=== PATIENT | female | born 1955 | race Caucasian/White ===

== ENCOUNTER → 2018-01-02 | Outpatient (CLI) | payer OTHER ==
[~2018-01-02] MED LIST: BUPR150T3 PO; CYCL-36 PO; ESTR1TAB PO; IBUP800 PO; LANS30CA PO; LANSO15 PO; ROSU1TAB8 PO; TRAM50TA PO
[2018-01-02 09:08] LABS: HEMATOCRIT 42.4 % (35.0-46.0); HEMOGLOBIN 14.4 GM/DL (11.6-15.3); MEAN CELL VOLUME 92.7 FL (80.0-100.0); MEAN CORPUSCULAR HEMOGLOBIN 31.5 PG (27.0-34.0); PLATELET COUNT 276 TH/MM3 (150-450); RED BLOOD COUNT 4.58 MIL/MM3 (4.00-5.30); RED CELL DISTRIBUTION WIDTH 13.2 % (11.6-17.2); WHITE BLOOD COUNT 8.4 TH/MM3 (4.0-11.0)
[2018-01-02 09:17] LABS: PROTHROMBIN TIME - PATIENT 10.4 SEC (9.8-11.6)
[2018-01-02 11:21] LABS: BICARBONATE 23.2 MEQ/L (21.0-32.0); CREATININE 0.71 MG/DL (0.50-1.00)
--- NOTE | 2018-01-02 12:27 | EKG ---
Date Performed: 01/02/2018 Time Performed: 08:31:39 PTAGE: 62 years EKG: Sinus rhythm POSSIBLE RIGHT VENTRICULAR CONDUCTION DELAY BORDERLINE ECG NO PREVIOUS TRACING DOCTOR: Emmanuel Galvan Interpretating Date/Time 01/02/2018 12:25:19
== END ==
LOC: CPRE 08:04
PROVIDERS: ATTEND Surgery
DX: Z01.810 Encounter for preprocedural cardiovascular examination (principal); Z01.812 Encounter for preprocedural laboratory examination; Z01.818 Encounter for other preprocedural examination; I65.23 Occlusion and stenosis of bilateral carotid arteries; R94.31 Abnormal electrocardiogram [ECG] [EKG]
CPT/HCPCS: 36415; 80048; 85027; 85610; 85730; 93005

== ENCOUNTER 2018-01-06 05:59 | Inpatient (IN) | payer OTHER ==
[~2018-01-06] VITALS: Ht 170.2 cm; Wt 74.0 kg
[~2018-01-06 05:59] MED LIST changes: -CYCL-36 PO; -ESTR1TAB PO; -IBUP800 PO; -LANSO15 PO; -TRAM50TA PO
[2018-01-06] MEDS ORDERED: CHLORHEXIDINE GLUCONATE 2 % 1 PACK (2 CLOTHS) TOPICAL PRN (06:30)
[2018-01-06] MEDS ORDERED: METOPROLOL TARTRATE 25 MG TAB PO PRN (06:30)
[2018-01-06] MEDS ORDERED: SODIUM CHLORID 0.9% 500 ML IV PRN (06:30)
[2018-01-06] MEDS ORDERED: POVIDONE IODINE 5% (ANTISEPSIS KIT) 4 APPLICATIONS EACH NARE PRN (06:30)
[2018-01-06] MEDS ORDERED: LACTATED RINGER'S 1000 ML IV PRN (06:30)
[2018-01-06] MEDS ORDERED: HEPARIN SODIUM - IV 10,000 UNITS/10 ML VIAL ONE (06:51)
[2018-01-06] MEDS ORDERED: ceFAZolin 2 GM PREMIX 50 ML ONE (06:51)
[2018-01-06] MEDS ORDERED: BUPIVACAINE/EPINEPHRINE 0.5% PF 30 ML VIAL ONE (06:51)
[2018-01-06] MEDS ORDERED: HEPARIN-NS/PF INJ 500 ML ONE (06:51)
[2018-01-06] MEDS ORDERED: THROMBIN (TOPICAL) 20,000 UNIT SPRAY KIT ONE (06:51)
[2018-01-06] MEDS ORDERED: PROTAMINE SULFATE 50 MG/5 ML VIAL ONE (06:51)
--- NOTE | 2018-01-06 06:57 | PD.VS.PN ---
Pre-operative Note Pre-operative diagnosis: Symptomatic L ICA stenosis, >80% Planned procedure: L CEA Interval History: Pt has been feeling well, no new neuro symptoms. No change in health that would preclude OR. Labs: Hct 42 plt 276 INR 1.0 creatinine 0.7 Blood: T&S EKG: no acute changes Imaging: duplex reviewed: >80% L ICA stenosis and <50% R ICA stenosis Orders: NPO Ancef 2g IV OCTOR Post-operative destination: CVICU Operative site marked: Yes Consent: Informed consent has been obtained from Yumiko Hilliard. I have explained the procedure in detail and discussed the risks, benefits, and potential complications. All questions have been answered. Patient contact information: [phone] Ethan Jenkins MD Jan 06, 2018 06:57
[2018-01-06] MEDS ORDERED: ASPI-516 CHEW (07:02)
[2018-01-06] MEDS ORDERED: APREPITANT 40 MG CAP ONE (07:21)
[2018-01-06] MEDS ORDERED: ACETAMINOPHEN 1000 MG/100 ML 100 ML IV ONE (07:22)
[2018-01-06] MEDS ORDERED: NITROGLYCERIN INJ 5 ML ONE (08:47)
--- NOTE | 2018-01-06 09:14 | HHI.PR ---
cc: John Barakat MD PhD; Ethan Jenkins MD Immediate Post Op Note Procedure Date: Jan 06, 2018 Pre Op Diagnosis: symptomatic high grade LEFT carotid stenosis Post Op Diagnosis: symptomatic high grade LEFT carotid stenosis Surgeon: Ethan Jenkins Base Remover(s): Ethan Hernández Procedure: L CEA Findings: high grade plaque at proximal ICA no neuro changes intraop Additional Information: awoke neuro intact Complications: none Specimen(s) removed: plaque, not for patholgoy Estimated blood loss: 100mL Anesthesia: General Drains: None Fluids: 1100mL IVF Urinary Output (mLs): 100 Patient to: CVICU Patient Condition: Good Implant/Devices: SEE IMPLANT LOG (if applicable) Date/Time of Procedure: SEE SURGICAL CARE RECORD Ethan Jenkins MD Jan 06, 2018 09:14
[2018-01-06] MEDS ORDERED: MORPHINE SULFATE 4 MG/ML INJ IV PUSH PRN (09:15)
[2018-01-06] MEDS ORDERED: BISACODYL 10 MG SUPP RECTAL PRN (09:15)
[2018-01-06] MEDS ORDERED: MAGNESIUM HYDROXIDE SUSP 30 ML CUP PO PRN (09:15)
[2018-01-06] MEDS ORDERED: SENNOSIDES 8.6 MG TAB PO PRN (09:15)
[2018-01-06] MEDS ORDERED: LACTULOSE SYRUP 20 GM/30 ML CUP PO PRN (09:15)
[2018-01-06 09:19] VITALS: BP_SYST 157; BP_SYST 209; BP_DIAS 72; BP_DIAS 99; PULSE 90; RESP 18; TEMP 97.5; O2SAT 99
[2018-01-06] MEDS ORDERED: MIDAZOLAM HCL 2 MG/2 ML VIAL ONE (09:34)
[2018-01-06 11:00] VITALS: BP_SYST 144; BP_SYST 146; BP_DIAS 60; BP_DIAS 73; PULSE 64; PULSE 65; RESP 16; TEMP 97.7; O2SAT 99
[2018-01-06] MEDS ORDERED: hydrALAZINE HCL 20 MG/ML VIAL IV PUSH PRN (11:15)
[2018-01-06] MEDS ORDERED: RESP: ALBUTEROL 2.5 MG/IPRATROPIUM 0.5 MG NEB (PRN) NEB (11:15)
--- NOTE | 2018-01-06 11:43 | MB ---
cc: Eboni Cavazos MD DATE: 01/06/2018 HISTORY OF PRESENT ILLNESS: The patient is a 62-year-old female with past medical history of hyperlipidemia, who had a carotid duplex ultrasound which showed greater than 80% and a left ICA stenosis and less than 50% right ICA stenosis. She underwent left carotid endarterectomy today by Dr. Jenkins. She received 1100 mL of crystalloids and had 100 mL of urine output along with 100 mL of estimated blood loss. The patient was transferred to CV ICU for close observation and Critical Care Medicine was consulted for critical care management. When seen, the patient is awake, alert, complaining of headache. She is lying in bed in no acute distress. Her current blood pressure is 159/69 on the art line with a saturation of 99% on 2 liters. She denies any chest pain, shortness of breath or GI symptoms. PAST MEDICAL HISTORY: Significant for hyperlipidemia. The patient denies any history of hypertension, diabetes mellitus or coronary artery disease. PAST SURGICAL HISTORY: Previous hysterectomy and knee surgery. ALLERGIES: DEMEROL, OXYCODONE and HYDROCODONE. SOCIAL HISTORY: Remote history of smoking. Nondrinker. FAMILY HISTORY: Noncontributing to present illness. REVIEW OF SYSTEMS: As per HPI, rest of the review of systems is unremarkable. PHYSICAL EXAMINATION: GENERAL: A 62-year-old female lying in bed, in no acute distress. VITAL SIGNS: Afebrile, pulse of 65, blood pressure 159/69 on art line, saturation 99% on 2 liters oxygen. HEENT: Atraumatic, normocephalic. Pupils are equal, round, reactive to light and accommodation. Extraocular muscles intact. Conjunctivae pink. Nonicteric sclerae. Oral mucosa within normal. NECK: Supple. No JVD, adenopathy or thyromegaly. Trachea in the midline. CARDIOVASCULAR: Regular rate and rhythm. Normal S1, S2. No murmurs, rubs or gallops noted. PULMONARY: Bilateral equal air entry. No rales or wheezing. ABDOMEN: Soft, nontender. No distention. Positive bowel sounds. EXTREMITIES: No cyanosis, clubbing, edema. NEUROLOGIC: No focal sensory deficit. LABORATORY DATA: From 01/02/2018 showed a sodium of 141, potassium 3.8, chloride 108, CO2 23, BUN 15, creatinine 0.71, glucose of 84. WBC 8.4, hemoglobin 14.4, hematocrit 42, platelet count 376. IMPRESSION: 1. Left carotid stenosis, status post left carotid endarterectomy. 2. Hypertension. 3. History of hyperlipidemia. 4. History of depression. RECOMMENDATIONS: 1. Monitor neuro status closely and minimize sedation. 2. Continue the oxygen to maintain sats above 92%. 3. We will place her on bronchodilators on a p.r.n. basis. 4. Monitor heart rate and blood pressure closely and maintain MAP greater than [address] on hydralazine 50 mg p.o. q. 8 hours for blood pressure control. Continue with aspirin 325 mg daily, Lipitor 40 mg at bedtime. 5. Monitor renal function, I's and O's and electrolyte replacement per protocol. 6. The patient was started on a p.o. heart healthy diet. 7. Placed on Pepcid for GI prophylaxis. Of note, the patient is on Prevacid 30 mg b.i.d. at home. 8. Monitor for signs of infection, which include fever and WBC. Butcher culture if spikes a fever. 9. Sliding scale insulin if needed for glycemic control. 10. Gastrointestinal prophylaxis with Pepcid 20 mg b.i.d. and deep venous thrombosis prophylaxis with sequential compression devices and Lovenox 40 mg subcutaneous daily as ordered. MD DAQUAN Argueta/AVINASH , 11:17 AM , 11:42 AM
[2018-01-06] MEDS ORDERED: LABETALOL HCL 100 MG/20 ML VIAL IV ONE (12:00)
[2018-01-06] MEDS ORDERED: ROCURONIUM INJ 50 MG/5 ML SYRINGE IV PUSH ONE (12:00)
[2018-01-06] MEDS ORDERED: NEOSTIGMINE 5 MG/5 ML SYRINGE IV PUSH ONE (12:00)
[2018-01-06] MEDS ORDERED: PROPOFOL 200 MG/20 ML AMP IV ONE (12:00)
[2018-01-06] MEDS ORDERED: ONDANSETRON HCL 4 MG/2 ML VIAL IV PUSH ONE (12:00)
[2018-01-06] MEDS ORDERED: DEXAMETHASONE SOD PHOS 4 MG/ML VIAL IV ONE (12:00)
[2018-01-06] MEDS ORDERED: LIDOCAINE HCL 1% PF 5 ML SYRINGE OTHER ONE (12:00)
[2018-01-06] MEDS ORDERED: ePHEDrine/NS 25 MG/5 ML SYRINGE IV ONE (12:00)
[2018-01-06] MEDS ORDERED: SODIUM CHLORIDE 0.9% 10 ML VIAL IV FLUSH ONE (12:00)
[2018-01-06] MEDS ORDERED: GLYCOPYRROLATE 1 MG/5 ML SYRINGE IV PUSH ONE (12:00)
[2018-01-06] MEDS ORDERED: PHENYLEPHRINE HCL 10 MG/ML VIAL IV ONE (12:00)
[2018-01-06] MEDS: ACETAMINOPHEN 1000 MG/100 ML 100 ML IV PRN (12:15)
[2018-01-06] MEDS: ONDANSETRON HCL 4 MG/2 ML VIAL IV PUSH PRN ×2 (12:15→19:08)
[2018-01-06 12:21] LABS: AUTOMATED NEUTROPHIL # 7.1 TH/MM3 (1.8-7.7); BASOPHIL % 0.2 % (0.0-2.0); EOSINOPHIL % 0.4 % (0.0-4.0); HEMATOCRIT 33.8 % (35.0-46.0); LYMPH % 8.8 % (9.0-44.0); LYMPHOCYTE # 0.7 TH/MM3 (1.0-4.8); MEAN CELL VOLUME 90.7 FL (80.0-100.0); MEAN CORPUSCULAR HEMOGLOBIN 32.2 PG (27.0-34.0); MEAN CORPUSCULAR HGB CONC 35.5 % (32.0-36.0); MEAN PLATELET VOLUME 7.9 FL (7.0-11.0); MONO % 2.6 % (0.0-8.0); MONOCYTE # 0.2 TH/MM3 (0-0.9); PLATELET COUNT 214 TH/MM3 (150-450); RED BLOOD COUNT 3.72 MIL/MM3 (4.00-5.30); WHITE BLOOD COUNT 8.1 TH/MM3 (4.0-11.0)
[2018-01-06 12:38] LABS: BICARBONATE 23.9 MEQ/L (21.0-32.0); CREATININE 0.47 MG/DL (0.50-1.00); PHOSPHORUS 3.4 MG/DL (2.5-4.9)
[2018-01-06] MEDS: hydrALAZINE HCL 50 MG TAB PO SCH ×2 (13:09→22:09)
[2018-01-06] MEDS: HYDROmorphone HCL 2 MG TAB PO PRN ×2 (13:49→17:42)
[2018-01-06 15:00] VITALS: BP_SYST 123; BP_SYST 129; BP_DIAS 47; BP_DIAS 57; PULSE 69; PULSE 71; RESP 16; TEMP 97.7; O2SAT 99
--- NOTE | 2018-01-06 15:18 | MP ---
cc: Ethan Jenkins MD DATE OF OPERATION: PREOPERATIVE DIAGNOSIS: Symptomatic left carotid stenosis. POSTOPERATIVE DIAGNOSIS: Symptomatic left carotid stenosis. PROCEDURE PERFORMED: Left carotid endarterectomy. ATTENDING SURGEON: Ethan Jenkins MD PARIMUTUEL TICKET CASHIER SURGEON: Ethan Hernández. ANESTHESIA: General. INDICATIONS: Ms. Hilliard is a 62-year-old lady with symptomatic carotid stenosis greater than 80% by duplex. She was taken to the operating room for carotid endarterectomy. DESCRIPTION OF PROCEDURE: Informed consent was obtained from the patient. She was taken to the operating room and placed supine on the operating table. An appropriate timeout was taken to ensure the patient's identity, operative site and planned procedure. The administration of 2 grams of Ancef was initiated prior to skin incision and will be discontinued after a single preoperative dose. Everyone in the room agreed with timeout and we proceeded. The left neck was prepped and draped. Incision made along the anterior border of sternocleidomastoid and carried down to subcutaneous tissue with electrocautery. The facial vein was identified and ligated between 3-0 silk. The jugular vein was gently retracted. The common carotid artery was identified and encircled with vessel loop. The internal carotid artery, external carotid artery and superior thyroid artery were all dissected free. The patient was systemically heparinized and ACT was confirmed greater than 250. Distal and proximal control of the internal and common carotid artery were obtained with profunda clamps and the external carotid artery was controlled with a profunda clamp. A longitudinal arteriotomy was made extending from the common carotid artery up to the internal carotid artery and the entire area was endarterectomized without difficulty. Nice endpoint was obtained and the endarterectomized artery was copiously irrigated. The arteriotomy was closed with a patch using running 5-0 Prolene suture. At the completion, it was flushed and noted to be hemostatic. There was a nice Doppler signal in distal ICA and the ECA. The heparin was reversed with protamine. The wound was irrigated, infiltrated with Marcaine and closed with 2-0 Polysorb, 3-0 Polysorb and 4-0 Monocryl. The sponge and needle counts were correct at the end of the case. Throughout the entire case, there were no neurological EEG changes. Ethan Jenkins MD RJF/TL , 02:22 PM , 03:18 PM
[2018-01-06 19:00] VITALS: BP_SYST 123; BP_SYST 139; BP_DIAS 53; BP_DIAS 75; PULSE 65; PULSE 69; RESP 16; TEMP 97.7; O2SAT 99
[2018-01-06] MEDS ORDERED: ATORVASTATIN 40 MG TAB PO SCH (21:00)
[2018-01-06 21:20] VITALS: O2SAT 97
[2018-01-06] MEDS ORDERED: ONDANSETRON ODT 4 MG TAB PO PRN (21:30)
[2018-01-06] MEDS ORDERED: PROMETHAZINE HCL 25 MG TAB PO ONE (21:30)
[2018-01-06] MEDS: FAMOTIDINE 20 MG TAB PO SCH (22:08)
[2018-01-06] MEDS: DOCUSATE SODIUM 50 MG/SENNA 8.6 MG TAB PO SCH (22:09)
[2018-01-06] MEDS: buPROPion HCL 150 MG SUSTAINED RELEASE TAB PO SCH (22:09)
[2018-01-06 23:00] VITALS: BP_SYST 120; BP_SYST 130; BP_DIAS 51; BP_DIAS 65; PULSE 55; PULSE 58; RESP 14; TEMP 98.2; O2SAT 99
[2018-01-07 03:00] VITALS: BP_SYST 113; BP_SYST 129; BP_DIAS 48; BP_DIAS 60; PULSE 56; RESP 14; TEMP 98.5; O2SAT 100
[2018-01-07] MEDS: hydrALAZINE HCL 50 MG TAB PO SCH ×2 (05:00→12:09)
[2018-01-07 07:00] VITALS: BP_SYST 124; BP_SYST 127; BP_DIAS 51; BP_DIAS 66; PULSE 60; PULSE 63; RESP 16; TEMP 97.8; O2SAT 98
[2018-01-07] MEDS: ACETAMINOPHEN 1000 MG/100 ML 100 ML IV PRN (07:02)
--- NOTE | 2018-01-07 07:16 | PD.VS.PN ---
Subjective POD #: 1 Procedure(s): L CEA Subjective/Hospital Course moderate headache but no neuro symptoms VALADEZ sitting in chair Objective Vitals/I&O Date Time Temp Pulse Resp B/P (MAP) Pulse Ox O2 Delivery O2 Flow Rate FiO2 01/07/18 03:00 98.5 56 14 129/60 (83) 100 113/48 (69) 01/07/18 03:00 100 Nasal Cannula 1.00 01/07/18 03:00 56 01/06/18 23:00 99 Nasal Cannula 1.00 01/06/18 23:00 98.2 55 14 130/65 (86) 99 120/51 (74) 01/06/18 23:00 58 01/06/18 21:20 97 Nasal Cannula 2.00 01/06/18 19:04 17 01/06/18 19:00 65 01/06/18 19:00 97.7 69 16 139/75 (96) 99 123/53 (76) 01/06/18 19:00 98 Nasal Cannula 1.00 01/06/18 15:00 99 Nasal Cannula 1.00 01/06/18 15:00 71 01/06/18 15:00 97.7 69 16 129/57 (81) 99 123/47 (72) 01/06/18 12:57 16 01/06/18 11:00 97.7 65 16 144/73 (96) 99 146/60 (88) 01/06/18 11:00 99 Nasal Cannula 2.00 01/06/18 11:00 64 01/06/18 09:19 97.5 90 18 209/72 (117) 99 157/99 (118) 01/06/18 09:19 99 Nasal Cannula 2.00 01/06/18 09:19 90 01/07/18 01/07/18 01/07/18 07:00 15:00 23:00 Intake Total 560 ml Output Total 700 ml Balance -140 ml Exam: alert, VALADEZ L neck incision looks good, no swelling 5/5 UE/LE strength Laboratory Laboratory Tests Test 01/06/18 11:47 01/07/18 05:51 White Blood Count 8.1 Red Blood Count 3.72 Hemoglobin 12.0 Hematocrit 33.8 Mean Corpuscular Volume 90.7 Mean Corpuscular Hemoglobin 32.2 Mean Corpuscular Hemoglobin Concent 35.5 Red Cell Distribution Width 13.0 Platelet Count 214 Mean Platelet Volume 7.9 Neutrophils (%) (Auto) 88.0 Lymphocytes (%) (Auto) 8.8 Monocytes (%) (Auto) 2.6 Eosinophils (%) (Auto) 0.4 Basophils (%) (Auto) 0.2 Neutrophils # (Auto) 7.1 Lymphocytes # (Auto) 0.7 Monocytes # (Auto) 0.2 Eosinophils # (Auto) 0.0 Basophils # (Auto) 0.0 CBC Comment DIFF FINAL Differential Comment Blood Urea Nitrogen 9 Creatinine 0.47 Random Glucose 121 Calcium Level 8.0 Phosphorus Level 3.4 Magnesium Level 2.0 Sodium Level 140 Potassium Level 3.6 Chloride Level 107 Carbon Dioxide Level 23.9 Anion Gap 9 Estimat Glomerular Filtration Rate 135 Assessment and Plan Plan POD#1 s/p L CEA Neuro intact and looks great. 1. D/C today 2. F/U AML (pending) 3. Continue ASA/statin Discharge Planning today Ethan Jenkins MD Jan 07, 2018 07:16
[2018-01-07 07:27] LABS: BASOPHIL % 0.2 % (0.0-2.0); EOSINOPHIL % 0.2 % (0.0-4.0); HEMATOCRIT 38.3 % (35.0-46.0); HEMOGLOBIN 13.3 GM/DL (11.6-15.3); LYMPH % 15.8 % (9.0-44.0); LYMPHOCYTE # 1.5 TH/MM3 (1.0-4.8); MEAN CORPUSCULAR HEMOGLOBIN 32.2 PG (27.0-34.0); MEAN CORPUSCULAR HGB CONC 34.6 % (32.0-36.0); MEAN PLATELET VOLUME 8.3 FL (7.0-11.0); MONO % 8.9 % (0.0-8.0); MONOCYTE # 0.8 TH/MM3 (0-0.9); NEUT % 74.9 % (16.0-70.0); PLATELET COUNT 256 TH/MM3 (150-450); RED BLOOD COUNT 4.12 MIL/MM3 (4.00-5.30); RED CELL DISTRIBUTION WIDTH 13.4 % (11.6-17.2); WHITE BLOOD COUNT 9.3 TH/MM3 (4.0-11.0)
[2018-01-07 07:38] LABS: BICARBONATE 23.7 MEQ/L (21.0-32.0); CALCIUM 8.9 MG/DL (8.5-10.1); CREATININE 0.5 MG/DL (0.50-1.00); MAGNESIUM 2.4 MG/DL (1.5-2.5); PHOSPHORUS 3.6 MG/DL (2.5-4.9)
[2018-01-07] MEDS ORDERED: ENOXAPARIN SODIUM 40 MG/0.4 ML SYRINGE SQ SCH (08:00)
[2018-01-07] MEDS ORDERED: DILA2TAB4 PO (08:40)
[2018-01-07] MEDS ORDERED: ASPIRIN 325 MG TAB PO SCH (09:00)
--- NOTE | 2018-01-07 09:00 | PD.VS.DC ---
Discharge Summary Admission Date: Jan 06, 2018 at 05:59 Discharge Date: Jan 07, 2018 Admission Diagnosis: (1) Carotid artery disease Discharge Diagnosis: (1) S/P carotid endarterectomy ICD Codes: Z98.890 - Other specified postprocedural states (2) Carotid artery disease ICD Codes: I77.9 - Disorder of arteries and arterioles, unspecified Brief History from admission 62/F with a hx of symptomatic L ICA stenosis, >80% Procedure(s): L CEA Significant Findings GENERAL: A&OX3,GCS 15 SKIN: Warm and dry/ L Neck incision intact w/o R/D/S HEAD: Normocephalic. EYES: No scleral icterus. No injection or drainage. NECK: Supple, trachea midline. No JVD or lymphadenopathy. CARDIOVASCULAR: Regular rate and rhythm without murmurs, gallops, or rubs. RESPIRATORY: Breath sounds equal bilaterally. No accessory muscle use. CN 2-12 intact Pt w/o any neurological deficits Speech clear UE 5/5 LE 5/5 Laboratory Tests Test 01/06/18 11:47 01/07/18 05:51 Red Blood Count 3.72 MIL/MM3 (4.00-5.30) Hematocrit 33.8 % (35.0-46.0) Neutrophils (%) (Auto) 88.0 % (16.0-70.0) 74.9 % (16.0-70.0) Lymphocytes (%) (Auto) 8.8 % (9.0-44.0) Lymphocytes # (Auto) 0.7 TH/MM3 (1.0-4.8) Creatinine 0.47 MG/DL (0.50-1.00) Random Glucose 121 MG/DL (74-106) Calcium Level 8.0 MG/DL (8.5-10.1) Monocytes (%) (Auto) 8.9 % (0.0-8.0) Chloride Level 108 MEQ/L (98-107) Hospital Course: 62/F with a hx of symptomatic L ICA stenosis, >80% Pt s/p L CEA POD 1 Doing well w/o any neurological deficits moderate headache but no neuro symptoms VALADEZ sitting in chair Headache improved w/ Acetaminophen Pt clear for D/C F/U arranged 4W w/ a carotid duplex Reviewed E- Forcse- No recent activity- RX post operative pain medication for 3 days Allergies Coded Allergies Type Severity Reaction Last Updated Verified hydrocodone Allergy Severe Rash 01/06/18 Yes meperidine Allergy Severe Shortness of Breath 01/06/18 Yes oxycodone Allergy Severe Rash 01/06/18 Yes 01/05/18 01/05/18 01/06/18 01/06/18 01/07/18 01/07/18 06:00 18:00 06:00 18:00 06:00 18:00 Intake Total 2200 ml 560 ml Output Total 850 ml 700 ml Balance 1350 ml -140 ml Intake Oral 100 ml 560 ml IV Total 1000 ml Other 1100 ml Output Urine Total 750 ml 700 ml Stool Total 0 ml Estimated Blood Loss 100 ml # Voids 2 # Bowel Movements 0 Laboratory Tests Test 01/06/18 11:47 01/07/18 05:51 White Blood Count 8.1 TH/MM3 9.3 TH/MM3 Red Blood Count 3.72 MIL/MM3 4.12 MIL/MM3 Hemoglobin 12.0 GM/DL 13.3 GM/DL Hematocrit 33.8 % 38.3 % Mean Corpuscular Volume 90.7 FL 93.0 FL Mean Corpuscular Hemoglobin 32.2 PG 32.2 PG Mean Corpuscular Hemoglobin Concent 35.5 % 34.6 % Red Cell Distribution Width 13.0 % 13.4 % Platelet Count 214 TH/MM3 256 TH/MM3 Mean Platelet Volume 7.9 FL 8.3 FL Neutrophils (%) (Auto) 88.0 % 74.9 % Lymphocytes (%) (Auto) 8.8 % 15.8 % Monocytes (%) (Auto) 2.6 % 8.9 % Eosinophils (%) (Auto) 0.4 % 0.2 % Basophils (%) (Auto) 0.2 % 0.2 % Neutrophils # (Auto) 7.1 TH/MM3 7.0 TH/MM3 Lymphocytes # (Auto) 0.7 TH/MM3 1.5 TH/MM3 Monocytes # (Auto) 0.2 TH/MM3 0.8 TH/MM3 Eosinophils # (Auto) 0.0 TH/MM3 0.0 TH/MM3 Basophils # (Auto) 0.0 TH/MM3 0.0 TH/MM3 CBC Comment DIFF FINAL AUTO DIFF Differential Comment AUTO DIFF CONFIRMED Blood Urea Nitrogen 9 MG/DL 7 MG/DL Creatinine 0.47 MG/DL 0.50 MG/DL Random Glucose 121 MG/DL 86 MG/DL Calcium Level 8.0 MG/DL 8.9 MG/DL Phosphorus Level 3.4 MG/DL 3.6 MG/DL Magnesium Level 2.0 MG/DL 2.4 MG/DL Sodium Level 140 MEQ/L 141 MEQ/L Potassium Level 3.6 MEQ/L 3.9 MEQ/L Chloride Level 107 MEQ/L 108 MEQ/L Carbon Dioxide Level 23.9 MEQ/L 23.7 MEQ/L Anion Gap 9 MEQ/L 9 MEQ/L Estimat Glomerular Filtration Rate 135 ML/MIN 125 ML/MIN Orders Procedure Category Date Status Time Lactated Ringer's MED 01/06/18 In Process 1000 Ml Inj (Lr 1000 M 06:30 Sodium Chlorid 0.9% MED 01/06/18 In Process 500 Ml Inj (Ns 500 M 06:30 Metoprolol Tartrate MED 01/06/18 In Process (Lopressor) 06:30 Povidone Iod 5% MED 01/06/18 In Process Antisepsis Kit 06:30 Chlorhexidine 2% MED 01/06/18 In Process Cloth (Chlorhexidine 06:30 Type And Screen BBK 01/06/18 In Process 06:27 Protamine Sulfate Inj MED 01/06/18 Complete (Protamine Sulfate 06:51 Heparin Inj (Heparin MED 01/06/18 Complete Inj) 06:51 Bupivacaine-Epi Pf MED 01/06/18 Complete 0.5% Inj (Sensorcaine 06:51 Thrombin Top [place] MED 01/06/18 Complete (Thrombin Top [place]) 06:51 Heparin-Ns/Pf Inj MED 01/06/18 Complete (Heparin-Ns/Pf Inj) 06:51 Cefazolin 2 Gm Premix MED 01/06/18 Complete (Ancef 2 Gm Premix 06:51 Aprepitant (Emend) MED 01/06/18 Complete 07:21 Acetaminophen 1000 MED 01/06/18 Complete Mg/100 Ml (Ofirmev 10 07:22 Red Blood Cells (Rbc) BBK 01/06/18 In Process 07:05 Urinary Catheter MCKENNA 01/06/18 Complete Management 08:38 Nitroglycerin Inj MED 01/06/18 Complete (Nitroglycerin Inj) 08:47 Am Admit Pre Op Care [facility] 01/06/18 Complete Admit To Inpatient ADMITTING 01/06/18 Transmitted Code Status CODE 01/06/18 Transmitted 09:14 Vital Signs (Adult) MCKENNA 01/06/18 In Process 09:14 Stave Hewer / MCKENNA 01/06/18 In Process Telemetry 09:14 Activity Oob Ad Candi MCKENNA 01/06/18 In Process 15:00 Activity Bed Rest MCKENNA 01/06/18 In Process 09:14 Diet Heart Healthy DIET 01/06/18 Transmitted Breakfast Basic Metabolic Panel LAB 01/07/18 Complete (Bmp) 06:00 Consult Stump Shooter CONS 01/06/18 Transmitted Aspirin (Aspirin) MED 01/07/18 In Process 09:00 Famotidine (Pepcid) MED 01/06/18 In Process 21:00 Atorvastatin (Lipitor) MED 01/06/18 In Process 21:00 Hydromorphone MED 01/06/18 In Process (Dilaudid) 09:15 Morphine Inj MED 01/06/18 In Process (Morphine Inj) 09:15 Scd Bilateral/Knee MCKENNA 01/06/18 In Process High 09:14 Docusate Sodium-Senna MED 01/06/18 In Process (Kristi-Colace) 21:00 Magnesium Hydroxide MED 01/06/18 In Process Liq (Milk Of Magnesi 09:15 Sennosides (Senokot) MED 01/06/18 In Process 09:15 Bisacodyl Supp MED 01/06/18 In Process (Dulcolax Supp) 09:15 Lactulose Liq MED 01/06/18 In Process (Lactulose Liq) 09:15 Inpatient ADMITTING 01/06/18 Transmitted Certification Remove Urinary MCKENNA 01/06/18 In Process Catheter 15:00 (Hub Use Only)Inp Phy CONS 01/06/18 Transmitted Cons/Ref Fentanyl Inj MED 01/06/18 Complete (Fentanyl Inj) 09:33 Midazolam Inj (Versed MED 01/06/18 Complete Inj) 09:34 Bupropion Sr MED 01/06/18 In Process (Wellbutrin Sr) 21:00 Acetaminophen 1000 MED 01/06/18 In Process Mg/100 Ml (Ofirmev 10 13:00 Complete Blood Count LAB 01/06/18 Complete With Diff 11:08 Complete Blood Count LAB 01/07/18 Complete With Diff 06:00 Basic Metabolic Panel LAB 01/06/18 Complete (Bmp) 11:08 Magnesium (Mg) LAB 01/06/18 Complete 11:08 Magnesium (Mg) LAB 01/07/18 Complete 06:00 Phosphorus (Po4) LAB 01/06/18 Complete 11:08 Phosphorus (Po4) LAB 01/07/18 Complete 06:00 Hydralazine MED 01/06/18 In Process (Apresoline) 12:00 Hydralazine Inj MED 01/06/18 Pending (Apresoline Inj) 11:15 Albuterol-Ipratropium MED 01/06/18 In Process Neb (Duoneb Neb) 11:15 Ondansetron Inj MED 01/06/18 Complete (Zofran Inj) 12:15 Sodium Chloride 0.9% MED 01/06/18 Complete Inj (Ns Inj) 12:00 Lidocaine Pf 1% Inj MED 01/06/18 Complete (Xylocaine-Mpf 1% In 12:00 Rocuronium Inj MED 01/06/18 Complete (Zemuron Inj) 12:00 Neostigmine Inj MED 01/06/18 Complete (Prostigmine Inj) 12:00 Glycopyrrolate Inj MED 01/06/18 Complete (Robinul Inj) 12:00 Phenylephrine Inj MED 01/06/18 Complete (Neosynephrine Inj) 12:00 Ephedrine/Ns 25 Mg/5 MED 01/06/18 Complete Ml Syr (Ephedrine/N 12:00 Dexamethasone Inj MED 01/06/18 Complete (Decadron Inj) 12:00 Ondansetron Inj MED 01/06/18 Complete (Zofran Inj) 12:00 Propofol 200 Mg/20 Ml MED 01/06/18 Complete Inj (Diprivan 200 12:00 Labetalol Inj MED 01/06/18 Complete (Trandate Inj) 12:00 Influenza (Quad) MED 01/07/18 In Process Vaccine Inj (Flu 10:00 Ondansetron Odt MED 01/06/18 In Process (Zofran Odt) 21:30 Promethazine MED 01/06/18 Complete (Phenergan) 21:30 Enoxaparin Inj MED 01/07/18 In Process (Lovenox Inj) 08:00 ^ Other Nursing Orders MCKENNA 01/07/18 In Process 07:14 Attending Discharge DISCHARGE 01/07/18 Transmitted Order Vital Signs Date Time Temp Pulse Resp B/P (MAP) Pulse Ox O2 Delivery O2 Flow Rate FiO2 01/07/18 03:00 98.5 56 14 129/60 (83) 100 113/48 (69) 01/07/18 03:00 100 Nasal Cannula 1.00 01/07/18 03:00 56 01/06/18 23:00 99 Nasal Cannula 1.00 01/06/18 23:00 98.2 55 14 130/65 (86) 99 120/51 (74) 01/06/18 23:00 58 01/06/18 21:20 97 Nasal Cannula 2.00 01/06/18 19:04 17 01/06/18 19:00 65 01/06/18 19:00 97.7 69 16 139/75 (96) 99 123/53 (76) 01/06/18 19:00 98 Nasal Cannula 1.00 01/06/18 15:00 99 Nasal Cannula 1.00 01/06/18 15:00 71 01/06/18 15:00 97.7 69 16 129/57 (81) 99 123/47 (72) 01/06/18 12:57 16 01/06/18 11:00 97.7 65 16 144/73 (96) 99 146/60 (88) 01/06/18 11:00 99 Nasal Cannula 2.00 01/06/18 11:00 64 01/06/18 09:19 97.5 90 18 209/72 (117) 99 157/99 (118) 01/06/18 09:19 99 Nasal Cannula 2.00 01/06/18 09:19 90 01/06/18 06:55 98.4 63 16 137/78 (97) 98 Discharge Condition: Good Discharge Disposition: Discharge Home Discharge Instructions: DIET You may resume your heart healthy diet ACTIVITY Activity as tolerated You may shower then pat dry incision site NO tub baths or swimming until your incision is fully healed NO Driving for 2W MEDICATION You may resume your daily home medications You were prescribed a narcotic pain medication which may cause drowsiness- No driving while taking this medication You were prescribed a narcotic pain medication which may cause constipation- Take with an over the counter stool softener WOUND CARE Leave your incision open to air Do not apply any creams or ointments to your incision as it may loosen your surgical glue Call the office ([phone]) to report any new onset redness, drainage, pain or swelling Any questions or concerns: Call [facility] at [facility] [phone] Johana Baumann Jan 07, 2018 09:00
[2018-01-07] MEDS: buPROPion HCL 150 MG SUSTAINED RELEASE TAB PO SCH (09:01)
[2018-01-07] MEDS: FAMOTIDINE 20 MG TAB PO SCH (09:01)
[2018-01-07] MEDS: DOCUSATE SODIUM 50 MG/SENNA 8.6 MG TAB PO SCH (09:02)
[2018-01-07] MEDS ORDERED: INFLUENZA VIRUS VACCINE (QUADRIVALENT) 0.5 ML SYR IM ONE (10:00)
[2018-01-07 11:00] VITALS: BP 123/66; PULSE 62; PULSE 63; RESP 18; TEMP 97.9; O2SAT 99
[2018-01-07] MEDS: HYDROmorphone HCL 2 MG TAB PO PRN (12:02)
== END 2018-01-07 13:20 | disposition home or self-care (01) | DRG 39 ==
LOC: HSDI 05:59 → HCVI 09:57
PROVIDERS: ADMIT Surgery; ATTEND Surgery
PROC: 03CL0ZZ Extirpation of Matter from Left Internal Carotid Artery, Open Approach (ICD-10-PCS; principal; 2018-01-06 07:25)
DX: I65.22 Occlusion and stenosis of left carotid artery (principal); I10 Essential (primary) hypertension; E78.5 Hyperlipidemia, unspecified; F32.9 Major depressive disorder, single episode, unspecified; Z87.891 Personal history of nicotine dependence; Z90.710 Acquired absence of both cervix and uterus; Z88.5 Allergy status to narcotic agent
CPT/HCPCS: 80048; 83735; 84100; 85025; 86850; 86900; 86901; 86920; 86922; C1768; J0131; J0690; J1100; J1644; J1650; J2250; J2370; J2405; J2710; J2720; J3010; J7120; J8501; Q0169